=== PATIENT | male | born 1940 | race Caucasian/White ===

== ENCOUNTER 2016-10-10 01:56 | Inpatient (IN) | payer OTHER, MEDICARE ==
[~2016-10-10] VITALS: Ht 182.9 cm; Wt 95.3 kg
[~2016-10-10 01:56] MED LIST: ALEVE PM CAPLE1 EACH PO; ASPIRIN81 M4 PO; ATORVASTATIN CA40 M1 PO; DAILY MULTIPLE1 EACH PO; METFORMIN HCL1000 M1 PO
--- NOTE | 2016-10-10 09:55 | Operative Report ---
Operative/Inv Procedure Report Surgery Date: 10/10/16 Name of Procedure: Right total knee arthroplasty Pre-Operative Diagnosis: Primary arthritis right knee Post-Operative Diagnosis: Same Estimated Blood Loss: less than 50ml Surgeon/Excellence Specialist: SVEN LINCOLN,MERLYN Ortiz Anesthesia: moderate sedation, block (SPINAL) IV Fluids: See anesthesia record Implants: Andrea posterior stabilized triathlon knee. Size 6 femoral component, size 7 tibial tray component component, 36 Kaylene patella button, 13 mm polyethylene insert Specimens: Bone to pathology Tourniquet: 57 minutes Complications: None Condition: Stable Operative Indication: Patient 75 show male who failed conservative treatment including cortisone injections versus severe arthritis of the right knee. He was indicated for right total knee arthroplasty. Risks and benefits the procedure were discussed with the patient detail in the office and he wished to proceed. A skilled set of hands was necessary provided by physician pediatric dental assistant Braulio Ortiz weighted with retraction component assembly and manipulation throughout the case. Operative/Procedure Note Note: Once informed consent was obtained and the correct limb was identified patient brought to operative room placed on table. Spinal anesthesia was induced and the patient was placed supine. A Lopez catheter was placed in the right lower 70 is prepped and draped in usual sterile fashion. To begin the procedure midline incision was made for total knee arthroplasty. Sharp dissection was carried down through the skin and subcutaneous tissue. A medial parapatellar arthrotomy was performed. Patella was everted and the fat pad is removed from the patellar tendon. Patella thickness was measured to be 26 mm and a plan resection of 10 mm was performed on the patella using the patellar jig. The lug nuts were then drilled for the patellar button which side sized out to be a 36 symmetric patella. Patella was then retracted laterally and the knee was placed in flexion. The lateral medial menisci were removed sharply with a #10 blade. The cruciate Likins removed sharply with #10 blade. Using a step drill the intramedullary canal of the femur was entered and the distal femoral cutting guide was set to a 6 valgus cut with 10 mm resection. This was placed down each medullary canal and a distal femoral cut was made without complication. The femur was then sized using the sizing block. We sized the sciatic femur to be a size 6 femur. A 4-in-1 size 6 cutting block was placed in the distal femur and anterior, posterior, chamfer cuts were made without complication. Excess bone was sent as pathology. Next the box cut guide was placed on the distal femur for the posterior stabilized knee box cut. This was done without complication. Once we're finish the femoral cuts we proceeded to the tibia. A pickle fork retractor was placed posterior to the tibia and the tibia was translated anteriorly CV retractors were in place as well. Using a step drill again each medullary canal the tibia was entered and the intramedullary cutting guide the tibia was placed. A plan resection of 4 mm off the tibia was performed and bone was sent as specimen. The tibia was sized to be a size 7 tibial tray. At this point we used curved osteotomes and curved curettes to remove osteophytes from the posterior femur and condyles. Remaining meniscus was removed as well. A trial reduction was done with a size 7 tibia, size 6 femoral component and 11 mm polyethylene insert. Knee was taken through a range of motion. There was some slight laxity to medial or valgus directed stress and we ended up with a 13 mm insert. The knee had full extension and 120 of flexion. The patellar tracked nicely. The rotation of the tibial component was marked and all components removed. The knee was pulse lavaged and the cement was mixed on the back table. The components were then cemented in place with the tibial component cemented first followed by the femoral component and the patellar button. Excess cement was removed with curettes. A 13 mm polyethylene insert trial was placed onto the tibial tray and the knee was placed in full extension while cement hardened. Once the cement hardened the knee was taken through a full range of motion found be stable at 0 and 60 of varus and valgus stress. It had full extension and 120 of flexion. The patella tracked nicely. The trial insert was removed and an 13 mm polyethylene insert was opened and locked onto the tibial tray. The knee again was taken through range of motion. The knee was then pulse lavaged and the tourniquet was deflated. The arthrotomy is closed #1 Vicryl interrupted sutures. Subcutaneous tissues closed #1 Vicryl and 2-0 Vicryl interrupted sutures. This skin was closed with kimberly and a sterile dressing was applied.
--- NOTE | 2016-10-10 10:07 | Cons- Medical ---
GAGANDEEP BENOIT 10/10/16 1006: General Information and HPI Consulting Request Date of Consult: 10/10/16 Requested By: SVEN LINCOLN,MERLYN Maxwell Reason for Consult: Management of DM/HTN Source of Information: patient, old records Exam Limitations: no limitations History of Present Illness: This is a 75 years old gentleman with past medical history is significant for hyperlipidemia, spinal stenosis, osteoarthritis involving multiple joints, colon cancer status post resection chemotherapy and radiotherapy 2001 with complete remission who was admitted today for right total knee arthroplasty and we are providing consultation to provide management of his medical conditions. This patient denies any history of hypertension and is not on antihypertensive medications. He is taking metformin but reports that he was found to have borderline diabetes mellitus and because of that started on metformin. She does not check his sugars regularly and reports that the once a year checkup he does with his primary care has shown almost complete resolution of the diabetes mellitus but nevertheless continues to take metformin. He denies any excessive past, polyuria or polyphagia. Patient reports that he follows up only with his primary care physician know any other specialist. His main concern is pain from multiple joint arthritis he has and from his spinal stenosis which worsened after radiotherapy for his colon cancer. Allergies/Medications Allergies: Coded Allergies: acetaminophen (From Percocet) (Intermediate, NAUSEA 10/10/16) oxycodone (From Percocet) (Intermediate, NAUSEA 10/10/16) Home Med List: Aspirin (Aspirin*) 81 MG TAB.CHEW 1 TAB PO DAILY PROPHO (Reported) Atorvastatin Calcium 40 MG TABLET 1 TAB PO DAILY CHOLESTEROL (Reported) Metformin HCl 1,000 MG TABLET 1 TAB PO NIGHTLY DM11 (Reported) Multivitamin (Daily Multiple Vitamin) 1 EACH TABLET 1 TAB PO DAILY HEALTH ( Reported) Naproxen Na-Diphenhydramin HCl (Aleve Pm Caplet) 220 MG-25 MG TABLET 1 TAB PO NIGHTLY SLEEP (Reported) Current Medications: Current Medications Sig/Mayra Start time Last Medication Dose Route Stop Time Status Admin Al Hydroxide/Mg 30 ML Q6P PRN 10/10 1300 AC Hydroxide PO Atorvastatin Calcium 40 MG 1700 10/10 1700 AC PO Docusate Sodium 100 MG DAILY NEEDED PRN 10/10 1300 AC PO Metformin HCl 1,000 MG 19010/10 1900 AC PO Morphine Sulfate 2 MG Q3P PRN 10/10 1300 AC IV Morphine Sulfate 4 MG Q3P PRN 10/10 1300 AC IV Ondansetron HCl 4 MG Q6P PRN 10/10 1300 AC IV Oxycodone/ 1 TAB Q4P PRN 10/10 1300 AC Acetaminophen PO Oxycodone/ 2 TAB Q4P PRN 10/10 1300 AC Acetaminophen PO Polyethylene Glycol 17 GM DAILY NEEDED PRN 10/10 1300 AC PO Ropivacaine 500 ML ONCE ONE 10/10 0900 DC ON-Q Ball 1 BAG INJ 10/12 0239 Senna/Docusate Sodium 2 TAB AT BEDTIME NEED.. 10/10 1300 AC PO Sodium Chloride 1,000 ML .[id number] 10/10 1300 AC IV Vancomycin HCl 1,000 MG ONCE ONE 10/10 1900 AC Dextrose/Water 250 ML IV 10/10 1959 Vancomycin HCl 1,000 MG ONCE 10/10 0000 DC Dextrose/Water 250 ML IV 10/10 2359 Warfarin Sodium 5 MG COUMADIN 1700 ONE 10/10 1700 AC PO 10/10 1701 Review of Systems Review of Systems Constitutional: Denies: chills, fever. EENTM: Denies: blurred vision, double vision, visual changes. Cardiovascular: Denies: chest pain, palpitations. Respiratory: Denies: cough, short of breath. GI: Denies: abdominal pain, nausea, vomiting. Genitourinary: Denies: dysuria, frequency, urgency. Musculoskeletal: Denies: no symptoms. Skin: Denies: no symptoms. All Other Systems: Reviewed and Negative Past History Travel History Traveled to [place] past 21 day No Medical History Endocrine: diabetes Other Medical Hx: Hyperlipidemia Surgical History Surgical History: colon resection Family History Relations & Conditions If Any: SISTER (Colon Cancer). FATHER (CAD). Psychosocial History Services at Home: None Smoking Status: Never Smoked ETOH Use: denies use Illicit Drug Use: denies illicit drug use Functional Ability ADLs Independent: dressing, eating, toileting, bathing. Ambulation: independent Exam & Diagnostic Data Last 24 Hrs of Vital Signs/I&O Vital Signs Date Time Temp Pulse Resp B/P Pulse O2 O2 Flow FiO2 Ox Delivery Rate 10/10 1322 99 Nasal 2.0L Cannula 10/10 1300 97.0 58 18 140/80 99 Nasal 2.0L Cannula Intake & Output 10/10 1600 10/10 0800 10/10 0000 Intake Total 500 Output Total 700 Balance -200 Intake, IV 150 Intake, Oral 350 Output, Urine 700 Patient 210 lb Weight Physical Exam General Appearance: well developed/nourished, no apparent distress, alert, awake Head: atraumatic, normal appearance Eyes: Bilateral: normal appearance. Ears, Nose, Throat: normal pharynx Neck: normal inspection, supple Respiratory: normal breath sounds, chest non-tender, no respiratory distress Cardiovascular: regular rate/rhythm Peripheral Pulses: 2+ radial (R), 2+ radial (L), 2+ dorsalis pedis (R), 2+ dorsalis pedis (L) Gastrointestinal: normal bowel sounds, soft, non-tender Back: normal inspection Extremities: normal inspection, normal capillary refill, no edema, RIGHT KNEE BANDAGED UP WITH A PAIN PUMP Last 24 Hrs of Labs/Sunny: None Assessment/Plan Assessment/Plan This is a 75 years old gentleman with history of hyperlipidemia, borderline diabetes mellitus on metformin, colon cancer status post surgery chemotherapy and radiotherapy in 2001 with complete remission who was admitted for right total knee arthroplasty. Diabetes mellitus Patient reports the diabetes to be borderline without any need of frequent sugar checks and has been taking metformin 1000 mg with very good response. This patient has little likelihood of requiring investigation that will use contrast. I will continue him on the metformin but at adjust his diet to be consistent carbohydrate diet. Hyperlipidemia Patient reports stable hyperlipidemia for which she take atorvastatin 40 mg daily. We'll continue the patient anticholesterol medications. Home medications: Patient has been taking aspirin 81 mg daily for heart health and multiple vitamin tablet every day for supplement. She relieves his pain with naproxen and Aleve p.m. but currently is on a pain regimen as a result of post operative management. Would continue his home dose of aspirin and multivitamin. DVT prophylaxis at all times Problem List: 1. Diabetes 2. Hyperlipidemia 3. Spinal stenosis Copies To: TATIANA LINCOLN,AREN Cruz; JJ LINCOLN,GENEVA Yepez. Consult Acknowledgment - Thank you for your consult request. DAVIDE RICO MD 10/10/162115: Assessment/Plan Consult Acknowledgment - Thank you for your consult request. Attending MD Review Statement Attending Statement Attending MD Statement: examined this patient, discuss w/resident/PA/ELIGIBILITY CLERK, agreed w/resident/PA/ELIGIBILITY CLERK, reviewed EMR data (avail), amended to note Attending Assessment/Plan: The patient is a 75 yo male with h/o HL, spinal stenosis, OA, DM2 (on Metformin) , h/o colon ca (s/p chemo/radiation/surgery) who presented for elective right knee replacement with Dr. Kapadia today. We are requested to evaluate and follow any medical issues post operatively. Surgery went well with no significant issues. The patient denies any dyspnea, chest pain, abdominal pain. Only has usual post operative knee pain. Physical Exam: VS: T 97.0, P 58, R 18, BP 140/80, PO 99% 2L (not needed) HEENT: jason- moist mucosa Neck: no bruits/JVD Chest: clear Cor: RRR, nl S1, S2 w/o murm Abd: BS+, soft, NT, - HSM Ext: post op right knee, no edema, pulses 2+ Neuro: alert & oriented, non-focal exam Labs/Tests- as above Impression/Plan: #S/P Right Knee Arthroplasty- immediately post op. Plan: As per orthopedics. Vanco given pre-op. Coumadin post op. #Hyperlipidemia- has been followed by Dr. Spangler Plan: Continue Atorvastatin. #DM2- patient on Metformin and does not wish to take insulin. As is stable post op should be able to give Metformin. Plan: Continue Metformin and follow sugars. Consistent carb 3 diet. #H/O Colon Cancer- in remission. Plan: OP follow-up as planned.
[2016-10-10 13:00] VITALS: BP 140/80
--- NOTE | 2016-10-10 13:00 | NUR ---
PT ADMITTED FROM PACU S/P RT TKR, PT AXO, DENIES PAIN, RT KNEE DSG CDI, + CMS DURAKOLD IN PLACE, SHAFFER CATH PATENT DRAINING CLEAR YELLOW URINE, FAMILY AT BEDSIDE, SKIN INTACT
--- NOTE | 2016-10-10 14:44 | PN- Orthopedic ---
Subjective Subjective: Reports some knee discomfort "aching". Already up walking with PT. No dizziness. No shortness of breath. No chest pains. He reports the aj is causing him to have an uncomfortable sensation, "i feel like i have to go all the time". Tolerating diet. No nausea. Objective Vital Signs and I&Os Vital Signs Date Time Temp Pulse Resp B/P Pulse O2 O2 Flow FiO2 Ox Delivery Rate 10/10 1322 99 Nasal 2.0L Cannula 10/10 1300 97.0 58 18 140/80 99 Nasal 2.0L Cannula Intake & Output 10/10 1600 10/10 0800 10/10 0000 10/09 1600 10/09 0800 10/09 0000 Intake Total 500 Output Total 700 Balance -200 Intake, IV 150 Intake, Oral 350 Output, Urine 700 Patient 210 lb Weight Physical Exam: General - alert & oriented x 3. comfortable. out of bed to chair. no acute distress. Lungs - clear bilaterally. no w/r/r. Cardiac - s1s2. reg. Abdomen - soft. nontender. - aj draining clear, yellow urine. Extremities - warm bilaterally. no c/c/e. calves soft and nontender b/l. dressing c/d/i. nvi. on q in place. Assessment/Plan Assessment/Plan This 75 year old white male with hx dm and htn is POD#0 s/p right total knee arthroplasty for primary osteoarthritis tolerating diet. d/c iv fluids in the morning pain control as ordered f/u am labs coumadin accordingly - dvt ppx d/c aj in am PT eval, wbat [place]-operative vancomycin x 1 dose bowel regime dressing change POD#2 d/c planning f/u medical consult will d/w Core Measures/Miscellaneous Venous Thromboembolism VTE Risk Factors: Age > 40, Surgery VTE Contraindications: No Contraindications VTE Prophylaxis Ordered Inpt: Mech & Pharm VTE Diagnosis: No Beta Alex Is Beta Alex a Home Med? No Antibiotics Is Patient on Antibiotics? Yes If Yes: prophylaxis
[2016-10-10 15:20] VITALS: BP 130/70
[2016-10-10 16:58] VITALS: BP 130/68
[2016-10-10 19:02] VITALS: BP 132/70
[2016-10-10 22:58] VITALS: BP 120/60
[2016-10-11 03:23] VITALS: BP 160/80
[2016-10-11 06:51] VITALS: BP 150/80
--- NOTE | 2016-10-11 07:33 | PN- Medicine Consult ---
GAGANDEEP BENOIT 10/11/16 0733: Assessment/Plan Assessment/Plan Assessment: This is a 75 years old male with past medical history of type 2 diabetes mellitus, hyperlipidemia, colon cancer status post colon resection chemotherapy and radiotherapy 15 years ago for today is day 1 post right total knee arthroplasty. Patient reports to continue to experience right knee soreness with minimal relief from most of the medication with the exception of morphine. The patient is a left oriented to time place and person very plesant and has been eating and finishing his meals without any problems. Plan: Right knee total arthroplasty Today is day 1 post procedure. Patient reports to continue to have pain. Received only 2 doses of IV morphine Please continue to assess pain and address accordingly. She has pain regimen per orthopedic team Diabetes mellitus Patient is on consistent carbohydrate diet Continue with metformin Accu-Cheks before meals to assess sugar control. Hyperlipidemia Patient is on atorvastatin per primary care physician Continue with current cholesterol medications Problem List: 1. Diabetes 2. Hyperlipidemia 3. Spinal stenosis 4. S/P total knee arthroplasty Subjective Subjective: Patient is post right TKA day 1. Patient reports not to have slept well because of the right knee pain he received multiple doses of pain medication. All the pain medication he reports that morphine is the one which is waking the best. Since admission has just received 2 doses of morphine of which he can get up to every 3 hours. Through the special panel pain scale has been between 5 and 7. Patient has been eating and finishing his meals well completing 75-100% of his portions. Review of Systems Constitutional: Denies: chills, fever. Cardiovascular: Denies: chest pain, palpitations. Respiratory: Denies: cough, short of breath, wheezing. Gastrointestinal: Denies: abdominal pain, nausea, vomiting (no bowel movement). Genitourinary: Denies: no symptoms. Musculoskeletal: Reports: see HPI, joint pain. Skin: Denies: no symptoms. Comments: All other systems reviewed and are negative Objective Last 24 Hrs of Vital Signs/I&O Vital Signs Date Time Temp Pulse Resp B/P Pulse O2 O2 Flow FiO2 Ox Delivery Rate 10/11 0651 98.3 91 20 150/80 92 Nasal 2.0L Cannula 10/11 0323 90 160/80 02 0000 Nasal 2.0L Cannula 10/108 98.4 68 20 120/60 93 Nasal Cannula 10/10 1902 98.7 84 20 132/70 92 Room Air 10/10 1658 97.7 67 20 130/68 94 Room Air 10/10 1520 97.6 69 20 130/70 91 Room Air 10/10 1322 99 Nasal 2.0L Cannula 10/10 1300 97.0 58 18 140/80 99 Nasal 2.0L Cannula Intake & Output 10/11 1600 10/11 0800 10/11 0000 Intake Total 1005 Output Total 550 1050 Balance -550 -45 Intake, IV 525 Intake, Oral 480 Output, Urine 550 1050 Physical Exam General Appearance: no apparent distress, alert, awake Head: atraumatic, normal appearance Ears, Nose, Throat: normal pharynx, wet mucous membranes Neck: normal inspection, supple Cardiovascular: regular rate/rhythm Respiratory: normal breath sounds, chest non-tender, no respiratory distress, lungs clear Peripheral Pulses: 2+ tibialis posterior (R), 2+ tibialis posterior (L), 2+ dorsalis pedis (R), 2+ dorsalis pedis (L) Abdomen: normal bowel sounds, soft, non-tender Extremities: normal capillary refill, no edema, right knee bandaged no bleeding on the dressing Current Medications: Current Medications Sig/Mayra Start time Last Medication Dose Route Stop Time Status Admin Acetaminophen 1,000 MG Q6P PRN 10/10 1530 AC 10/10 N/A 1 UNIT IV 1600 Al Hydroxide/Mg 30 ML Q6P PRN 10/10 1300 AC Hydroxide PO Atorvastatin Calcium 40 MG 1700 10/10 1700 AC 10/10 PO 1735 Docusate Sodium 100 MG BID 10/10 2200 AC 10/10 PO 2144 Docusate Sodium 100 MG DAILY NEEDED PRN 10/10 1300 DC PO Ketorolac 15 MG Q6-PRN PRN 10/10 1530 AC 10/10 Tromethamine IV 1937 Metformin HCl 1,000 MG 1900 10/10 1900 AC 10/10 PO 1930 Morphine Sulfate 2 MG Q3P PRN 10/10 1300 AC IV Morphine Sulfate 4 MG Q3P PRN 15 1300 AC 10/11 IV 0744 Ondansetron HCl 4 MG Q6P PRN 10/10 1300 AC IV Oxycodone/ 1 TAB Q4P PRN 10/10 1300 DC Acetaminophen PO Oxycodone/ 2 TAB Q4P PRN 10/10 1300 DC Acetaminophen PO Polyethylene Glycol 17 GM DAILY NEEDED PRN 10/10 1300 AC PO Ropivacaine 500 ML ONCE ONE 10/10 0900 DC ON-Q Ball 1 BAG INJ 10/12 0239 Senna/Docusate Sodium 2 TAB AT BEDTIME NEED.. 10/10 1300 AC PO Sodium Chloride 1,000 ML .[id number] 10/10 1300 AC 10/10 IV 2316 Tramadol HCl 100 MG Q6-PRN PRN 10/10 1545 AC PO Tramadol HCl 50 MG Q4 PRN 10/10 1530 AC 10/10 PO 2144 Vancomycin HCl 1,000 MG ONCE ONE 10/10 1900 DC 10/10 Dextrose/Water 250 ML IV 10/10 1959 1931 Vancomycin HCl 1,000 MG ONCE 10/10 0000 DC Dextrose/Water 250 ML IV 10/10 2359 Warfarin Sodium 5 MG COUMADIN 1700 ONE 10/10 1700 DC 10/10 PO 10/10 1701 1735 Results Last 24 Hrs Lab/Sunny Results: Laboratory Tests 10/11/16 0700: Anion Gap 10, Estimated GFR > 60, BUN/Creatinine Ratio 16.3, PT 12.4, INR 1.18 H, CBC w Diff NO MAN DIFF REQ, RBC 3.87 L, MCV 93.0, MCH 31.2 H, RDW 13.1, MPV 7.1 L, Gran % 82.5 H, Lymphocytes % 8.5 L, Monocytes % 8.2, Eosinophils % 0.5 , Basophils % 0.3, Absolute Granulocytes 6.3, Absolute Lymphocytes 0.7 L, Absolute Monocytes 0.6, Absolute Eosinophils 0, Absolute Basophils 0, PUBS MCHC 33.5 DAVIDE RICO MD 10/11/16 1623: Attending MD Review Statement Attending Sign Off Attending Cosign Statement: I have: examined this patient, reviewed [facility] EMR data, agreed w/resident/PA/PODIATRY ASSISTANT , amended to note. Other Findings: The patient was seen and agree with the plan of care as outlined.
[2016-10-11 08:00] LABS: ABSOLUTE BASOPHIL COUNT 0 /CUMM (0.0-0.2); ABSOLUTE EOSINOPHIL COUNT 0 /CUMM (0.0-0.7); ABSOLUTE GRANULOCYTE CT 6.3 /CUMM (1.4-6.5); ABSOLUTE LYMPH COUNT 0.7 /CUMM (1.2-3.4); ABSOLUTE MONOCYTE COUNT 0.6 /CUMM (0.10-0.60); BASOPHIL % 0.3 % (0.0-2.0); EOSINOPHIL % 0.5 % (0-5); GRANULOCYTE % 82.5 % (42.2-75.2); HEMATOCRIT 35.9 % (42-52); MEAN CORPUSCULAR HGB 31.2 PG (27.0-31.0); MEAN CORPUSCULAR HGB CONC 33.5 G/DL (33.0-37.0); MEAN PLATELET VOLUME 7.1 FL (7.4-10.4); PLATELET COUNT 173 /CUMM (130-400); RBC DISTRIBUTION WIDTH 13.1 % (11.5-14.5); RED BLOOD CELL CT 3.87 /CUMM (4.70-6.10); WHITE BLOOD CELL COUNT 7.6 /CUMM (4.8-10.8)
[2016-10-11 08:14] LABS: PT 12.4 SEC (9.4-12.5)
--- NOTE | 2016-10-11 09:20 | PN- Orthopedic ---
Subjective Subjective: Post op day 1, patient c/o uncontrolled pain overnight. Was not able to sleep as a result. Denies chest pain, shortness of breath and difficulty breathing. Has poor appetite but denies nausea and vomitting. Has aj catheter in place. Objective Vital Signs and I&Os Vital Signs Date Time Temp Pulse Resp B/P Pulse O2 O2 Flow FiO2 Ox Delivery Rate 10/11 0651 98.3 91 20 150/80 92 Nasal 2.0L Cannula 10/11 0323 90 160/80 10/11 0000 Nasal 2.0L Cannula 10/10 2258 98.4 68 20 120/60 93 Nasal Cannula 10/10 1902 98.7 84 20 132/70 92 Room Air 10/10 1658 97.7 67 20 130/68 94 Room Air 10/10 1520 97.6 69 20 130/70 91 Room Air 10/10 1322 99 Nasal 2.0L Cannula 10/10 1300 97.0 58 18 140/80 99 Nasal 2.0L Cannula Intake & Output 10/11 1600 10/11 0800 10/11 0000 10/10 1600 10/10 0800 10/10 0000 Intake Total 720 1005 500 Output Total 550 1050 700 Balance 170 -45 -200 Intake, IV 600 525 150 Intake, Oral 120 480 350 Number 0 Bowel Movements Output, Urine 550 1050 700 Patient 210 lb Weight Physical Exam: General: alert and oriented x3, no acute distress Cardiac: RRR, s1s2 Pulmonary: Bilateral lung sounds cta Abdomen: Non-tender Extremities: Moves all extremities, distal sensations intact. Motor 5/5 in plantar and dorsi flexion bilaterally. Skin warm and well perfused. DP pulses palpable bilaterally. Bilateral calves soft and non-tender. Surgical site: Right knee. OnQ site tender, mild bruising noted around insertion site. Knee dressing clean dry and intact. Assessment/Plan Assessment/Plan This is a 75 year male, POD 1, s/p Right TKR -Add: MS contin 15 bid -Change: Toradol from prn to scheduled for today, d/c 4mg iv morphine, d/c tramadol, add dilaudid po for pain management -Diet: Advance as tolerated -D/C iv fluids -D/C aj catheter -D/C on Q -OOB with pt today, wbat -F/U am labs -DVT ppx: Coumadin, dose per INR, target INR 2-3 -Will d/w Dr. Kapadia Core Measures/Miscellaneous Venous Thromboembolism VTE Risk Factors: Age > 40, Surgery VTE Contraindications: No Contraindications VTE Prophylaxis Ordered Inpt: Mech & Pharm VTE Diagnosis: No Beta Alex Is Beta Alex a Home Med? No Antibiotics Is Patient on Antibiotics? Yes If Yes: prophylaxis
[2016-10-11 13:51] VITALS: BP 130/80
--- NOTE | 2016-10-11 16:09 | NUR ---
SPOKE WITH LAZARUS MOODY REGARDING PT'S LACK OF CONTROLLED. SRIKANTH WILL CHANGE IV MORPHINE TO IV DILAUDID. ALLAN BOOKER AWARE.
--- NOTE | 2016-10-11 20:53 | NUR ---
SHAFFER REMOVED 0955, PT DTV BY 1355. AT 1600 PT STILL HAD NOT VOIDED, PT SAID HE WOULD DRINK ALOT OF WATER AND MOVE AROUND TO SEE IF THAT WOULD HELP HIM VOID. AT 1700 PT STILL HAD NOT VOIDED, BLADDER SCAN SHOWED 324, 350, AND 370 ML. PT WISHED TO EAT DINNER. STRAIGHT CATHED PT AT 1750 AND GOT OUT 375 ML. TOLD SURGICAL PA ELIAS ABOUT SITUATION AND DID NOT WISH TO PLACE PATIENT ON STRAIGHT CATH PROTOCOL. ALSO NOTIFIED ELIAS THAT FAMILY REQUESTED TO HAVE LFT'S DRAWN ON PATIENT WITH MORNING LABS, ELIAS DECLINED TO ORDER.
--- NOTE | 2016-10-11 22:42 | NUR ---
PT BLADDER SCANNED AT THIS TIME FOR 150 ML. PT DENIES PAIN OR DISCOMFORT, NO DISTENTION PRESENT. PO FLUIDS ENCOURAGED. SURGICAL PA ELIAS AWARE, NOT TO STRAIGHT CATH AT THIS TIME, WILL CONTINUE TO ENCOURAGE PO FLUIDS AND RECHECK WITH SCAN IN 2 HOURS OR IF PT STARTS TO EXPERIENCE DISCOMFORT.
[2016-10-11 22:57] VITALS: BP 140/72
--- NOTE | 2016-10-12 04:30 | NUR ---
PT UNABLE TO VOID SO FAR. BLADDER SCANNED SHOWED 375ML URINE RETENTION. ST CATHETERIZED FOR 400ML LIGHT EMMA URINE. SURGICAL PA ELIAS MADE AWARE WHO SAID IF THE PT NOT ABLE TO VOID BY NEXT DUE TIME, PLACE A SHAFFER. SURGICAL PA LAZARUS REMINDED THIS AM WHO PROMISED TO PUT AN ORDER IN FOR A SHAFFER PRN. DAY ADE SALGADO AWARE.
[2016-10-12 06:30] VITALS: BP 140/80
--- NOTE | 2016-10-12 07:45 | PN- Orthopedic ---
See Addendum Subjective Subjective: Patient complaining of discomfort around proximal portion of tomer bandage. He is also complaining of difficulty urinating today. He was straight cath'd overnight for retention. He continues to have pain in his operative knee. He feels overall that his pain is improved from one day ago. He denies chest pain, shortness of breath and difficulty breathing. He denies nausea and vomitting. He has been having difficulty ambulating. Objective Vital Signs and I&Os Vital Signs Date Time Temp Pulse Resp B/P Pulse O2 O2 Flow FiO2 Ox Delivery Rate 10/12 0630 99.7 86 20 140/80 93 Nasal 1.5L Cannula 10/11 2257 98.6 83 20 140/72 93 Nasal 1.0L Cannula 10/11 1351 99.5 90 20 130/80 91 Intake & Output 10/12 0800 10/12 0000 10/11 1600 10/11 0800 10/11 0000 10/10 1600 Intake Total 500 0027 957 5221 500 Output Total 375 069 140 5178 700 Balance 125 925 170 -45 -200 Intake, IV 300 75 600 525 150 Intake, Oral 200 1150 120 480 350 Number 0 Bowel Movements Output, Urine 375 814 384 8777 700 Patient 210 lb Weight Physical Exam: General: ALert and oriented x3, no acute distress Cardiac: RRR, s1s2 Pulm: C T A bilaterally Abdomen: Non=tender, non-distended Extremities: Moves all extremities, distal sensations intact. Motor 5/5 in plantar and dorsi flexion. Skin warm and well perfused. DP pulses palpable bilaterally. Bilateral calves soft and non-tender Surgical site: Right knee. Dressing dry and intact, changed at bedside, skin edges well approximated, kimberly intact, no excessive redness, warmth or swelling, no drainage. Clean dry dressing reapplied. Assessment/Plan Assessment/Plan This is a 75 year old male, POD 2, s/p Right TKR -Dressing change today -Wean off of IV narcotic as tolerated -hold toradol due to urinary issues -F/U bun-Creatinine -Lopez catheter if unable to void by 930 am -Start flomax, discussed case with Dr. Garcia, he will see patient -DVT ppx coumadin, dose per INR -Continue diet as tolerated -Saline Nasal spray for congestion -Will d/w dr. Kapadia Core Measures/Miscellaneous Venous Thromboembolism VTE Risk Factors: Age > 40, Surgery VTE Contraindications: No Contraindications VTE Prophylaxis Ordered Inpt: Mech & Pharm VTE Diagnosis: No Beta Alex Is Beta Alex a Home Med? No Antibiotics Is Patient on Antibiotics? Yes If Yes: prophylaxis
[2016-10-12 09:02] LABS: ABSOLUTE BASOPHIL COUNT 0 /CUMM (0.0-0.2); ABSOLUTE EOSINOPHIL COUNT 0.2 /CUMM (0.0-0.7); ABSOLUTE GRANULOCYTE CT 6.9 /CUMM (1.4-6.5); ABSOLUTE LYMPH COUNT 0.9 /CUMM (1.2-3.4); ABSOLUTE MONOCYTE COUNT 0.9 /CUMM (0.10-0.60); BASOPHIL % 0.3 % (0.0-2.0); EOSINOPHIL % 1.8 % (0-5); GRANULOCYTE % 77.6 % (42.2-75.2); HEMATOCRIT 33.7 % (42-52); MEAN CORPUSCULAR HGB 31.5 PG (27.0-31.0); MEAN CORPUSCULAR VOLUME 92.7 FL (80.0-94.0); MEAN PLATELET VOLUME 7.2 FL (7.4-10.4); PLATELET COUNT 195 /CUMM (130-400); RED BLOOD CELL CT 3.64 /CUMM (4.70-6.10); WHITE BLOOD CELL COUNT 8.9 /CUMM (4.8-10.8)
--- NOTE | 2016-10-12 09:24 | PN- Medicine Consult ---
GAGANDEEP BENOIT 10/12/16 0923: Assessment/Plan Assessment/Plan Assessment: This is a 75 years old male with past medical history of type 2 diabetes mellitus, hyperlipidemia, colon cancer status post colon resection chemotherapy and radiotherapy 15 years ago for today is day 2 post right total knee arthroplasty. Plan: Right knee total arthroplasty Today is day 2 post procedure. Patient reports pain is more controlled. Please continue to assess pain and address accordingly. He has pain regimen per orthopedic team Urine retention Patient reports that has not been able to void. He denies feeling any bladder fullness or urge to urinate. Subsequent bladder scans showed a rate urine around 300 mL for which the patient was straight cathed. He has never experienced urine retention in the past. Patient should be encouraged to continue to drink the if is not having urine have his bladder scanned every shift and only consider straight cath if urine more than 450 mL. patient started on Flomax 0.4 mg daily, continue to monitor for urine output. Diabetes mellitus Patient is on consistent carbohydrate diet Continue with metformin Accu-Cheks before meals to assess sugar control. Hyperlipidemia Patient is on atorvastatin per primary care physician Continue with current cholesterol medications Problem List: 1. Diabetes 2. Hyperlipidemia 3. Spinal stenosis 4. S/P total knee arthroplasty 5. Urine retention Subjective Subjective: Patient reports to continue to experience right knee soreness with minimal relief from most of the medication with the exception of morphine. The patient is a left oriented to time place and person very plesant and has been eating and finishing his meals without any problems. Patient reports that pain is more controlled maximum pain in 03/04. Review of Systems Constitutional: Denies: chills, fever. Cardiovascular: Denies: chest pain, palpitations. Respiratory: Denies: cough, short of breath. Gastrointestinal: Denies: abdominal pain, nausea, vomiting. Genitourinary: Denies: dysuria, frequency (urine retention). Musculoskeletal: Reports: see HPI, joint pain. Skin: Denies: no symptoms. Comments: All other systems reviewed and are negative Objective Last 24 Hrs of Vital Signs/I&O Vital Signs Date Time Temp Pulse Resp B/P Pulse O2 O2 Flow FiO2 Ox Delivery Rate 10/12 0630 99.7 86 20 140/80 93 Nasal 1.5L Cannula 10/11 2257 98.6 83 20 140/72 93 Nasal 1.0L Cannula 02/16 1351 99.5 90 20 130/80 91 Intake & Output 10/12 1600 10/12 0800 10/12 0000 Intake Total 120 500 Output Total 400 375 Balance -280 125 Intake, IV 20 300 Intake, Oral 100 200 Output, Urine 400 375 Physical Exam General Appearance: no apparent distress, alert, awake Head: atraumatic, normal appearance Neck: normal inspection, supple Cardiovascular: regular rate/rhythm Respiratory: normal breath sounds, chest non-tender, no respiratory distress Peripheral Pulses: 2+ dorsalis pedis (R), 2+ dorsalis pedis (L) Abdomen: normal bowel sounds, soft, non-tender Extremities: normal inspection, normal capillary refill, no edema Current Medications: Current Medications Sig/Mayra Start time Last Medication Dose Route Stop Time Status Admin Acetaminophen 1,000 MG Q6P PRN 10/10 1530 DC 10/10 N/A 1 UNIT IV 1600 Al Hydroxide/Mg 30 ML Q6P PRN 10/10 1300 AC Hydroxide PO Atorvastatin Calcium 40 MG 1700 10/10 1700 AC 10/11 PO 1636 Docusate Sodium 100 MG BID 10/10 2200 AC 10/11 PO 2110 Hydromorphone HCl 1 MG Q2-3 HRS NEEDED.. 10/11 1615 AC 10/11 IV 1827 Hydromorphone HCl 2 MG Q4P PRN 10/11 0845 AC PO Hydromorphone HCl 4 MG Q4-PRN PRN 10/11 0845 AC 10/11 PO 1514 Ketorolac 15 MG Q8 10/11 1400 AC 10/12 Tromethamine IV 10/15 1359 0700 Metformin HCl 1,000 MG 1900 10/10 1900 AC 10/11 PO 1900 Morphine Sulfate 15 MG BID 10/11 1000 AC 10/11 PO 2111 Morphine Sulfate 2 MG Q3P PRN 10/10 1300 AC 10/11 IV 1220 Ondansetron HCl 4 MG Q6P PRN 10/10 1300 AC 10/12 IV 1025 Polyethylene Glycol 17 GM DAILY NEEDED PRN 10/10 1300 AC PO Senna/Docusate Sodium 2 TAB AT BEDTIME NEED.. 10/10 1300 AC PO Sodium Chloride 2 SPRAY Q 3-4 HRS PRN PRN 10/12 0745 AC BLANCA Tamsulosin HCl 0.4 MG DAILY 10/12 1000 AC PO Tramadol HCl 100 MG Q6-PRN PRN 10/10 1545 AC PO Tramadol HCl 50 MG Q4 PRN 10/10 1530 AC 10/10 PO 2144 Warfarin Sodium 5 MG COUMADIN 1700 ONE 10/11 1700 DC 10/11 PO 10/11 1701 1636 Results Last 24 Hrs Lab/Sunny Results: Laboratory Tests 10/12/16 0740: Anion Gap 9, Estimated GFR > 60, BUN/Creatinine Ratio 16.3, PT 18.0 H, INR 1.72 H, CBC w Diff NO MAN DIFF REQ, RBC 3.64 L, MCV 92.7, MCH 31.5 H, RDW 13.0, MPV 7.2 L, Gran % 77.6 H, Lymphocytes % 10.3 L, Monocytes % 10.0 H, Eosinophils % 1.8, Basophils % 0.3, Absolute Granulocytes 6.9 H, Absolute Lymphocytes 0.9 L, Absolute Monocytes 0.9 H, Absolute Eosinophils 0.2, Absolute Basophils 0, PUBS MCHC 34.0 DAVIDE RICO MD 10/12/16 1716: Attending MD Review Statement Attending Sign Off Attending Cosign Statement: I have: examined this patient, reviewed [facility] EMR data, agreed w/resident/PA/LEAD MOBILE DEVELOPER , amended to note. Other Findings: The patient was seen and discussed with resident. Agree with plan of care as outlined.
--- NOTE | 2016-10-12 13:24 | RADIOLOGY REPORT ---
EXAMINATION: XR KNEE, RIGHT CLINICAL INFORMATION: Status post right total knee arthroplasty. COMPARISON: None TECHNIQUE: AP and lateral views of the right knee. FINDINGS: The right total knee arthroplasty appears well seated in near-anatomic alignment. There is a small joint effusion. There is some air in the joint and soft tissues. There are anterior skin kimberly. IMPRESSION: Intact right total knee arthroplasty. Expected postoperative changes.
[2016-10-12 14:57] VITALS: BP 132/76
--- NOTE | 2016-10-12 15:01 | RADIOLOGY REPORT ---
EXAMINATION: XR ABDOMEN MULTIPLE VIEWS CLINICAL INDICATION: Nausea/vomiting. Evaluate for ileus versus SBO. COMPARISON: Lumbosacral spine 01/30/2013. TECHNIQUE: AP erect and supine views (3 images) of the abdomen are obtained. FINDINGS: There is moderate stool in the right colon. There is mild gaseous distention of the transverse and proximal descending colon but no abnormal dilatation. There is tapered narrowing of the mid descending colon with nondistention distal to this. The etiology of this is unclear but a focal descending colon mass lesion cannot be excluded. There is no small bowel dilatation or other evidence of obstruction. There is no free air. There is mild right base linear atelectasis or scarring. There is a moderate left convex lumbar scoliosis with mild degenerative changes. IMPRESSION: Tapered narrowing of the mid descending colon. The possibility of a mass lesion is raised and colonoscopy may be considered. There is gaseous distention of the colon proximal to this but no abnormal dilatation. There is no other evidence of obstruction.
[2016-10-12 22:46] VITALS: BP 142/72
[2016-10-13] MEDS ORDERED: COUMADIN2.5 M1 PO (06:44)
[2016-10-13] MEDS ORDERED: DILAUDID2 M1 PO (06:44)
--- NOTE | 2016-10-13 06:44 | Patient Discharge Instructions ---
Discharge Instructions General Discharge Information You were seen/treated for: Right knee pain due to osteoarthritis You had these procedures: Right total knee replacement Watch for these problems: Increasing pain, redness, warmth, swelling. Drainage of any type from incision. Inability to bear weight on right leg. Fever >101.5 Call Surgeon to remove: [place] Do not soak the wound: Yes Daily wet to dry dressings: No No bath, but you may shower: Yes Other wound care: Daily dry dressing changes Special Instructions: DO NOT GIVE COUMADIN TODAY, 10/14/2016 Repeat INR tomorrow, then coumadin daily, titrate dose to target inr 2-3 Lopez cather placed on Saturday10/12/16 due to urinary retention, anticipate voiding trial saturday10/15/16, follow up as outpatient with Dr. Kashmir Garcia Continue to monitor bowel function and follow up as an outpatient with your GI specialist. Diet Continue normal diet: Yes Recommended Diet: Heart Healthy Activity Full Activity/No Limits: No Activity Self Limited: Yes Pounds, do NOT lift more than: 10 Acute Coronary Syndrome Inclusion Criteria At DC or during hospital stay patient has or had the following: ACS DIAGNOSIS No Discharge Core Measures Meds if any: Prescribed or Continued at Discharge Meds if any: NOT Prescribed or Continued at Discharge Congestive Heart Failure Inclusion Criteria At DC or during hospital stay patient has or had the following: CHF DIAGNOSIS No Discharge Core Measures Meds if any: Prescribed or Continued at Discharge Meds if any: NOT Prescribed or Continued at Discharge Cerebrovascular accident Inclusion Criteria At DC or during hospital stay patient has or had the following: CVA/TIA Diagnosis No Discharge Core Measures Meds if any: Prescribed or Continued at Discharge Meds if any: NOT Prescribed or Continued at Discharge Venous thromboembolism Inclusion Criteria VTE Diagnosis No VTE Type NONE VTE Confirmed by (Test) NONE Discharge Core Measures - Per Current guidelines, there needs to be overlap - treatment for the first 5 days of Warfarin therapy. - If discharged on Warfarin prior to 5 days of - overlap therapy, the patient will need to be - assessed for post discharge needs including - *Post discharge parental anticoagulation - *Warfarin and/or parental anticoagulation education - *Follow up date to check INR post discharge At least 5 days overlap therapy as Inpatient No Meds if any: Prescribed or Continued at Discharge Note: Overlap Therapy is Warfarin and Anticoagulant Meds if any: NOT Prescribed or Continued at Discharge
[2016-10-13 06:45] VITALS: BP 148/77
[2016-10-13] MEDS ORDERED: FLOMAX0.4 M1 PO (06:45)
--- NOTE | 2016-10-13 06:55 | Surgical Discharge Summary ---
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 FATHER (CAD). Psychosocial History Where Do You Live? Home Who Do You Live With? Spouse Services at Home: None What is Your Primary Language? Northern Irish ETOH Use: denies use Review of Systems: see H&P Hospital Course Course Attending Physician: SVEN LINCOLN,MERLYN Maxwell Primary Care Physician: AREN SIMPSON MD Hospital Course: Patient was admitted to hospital on 10/10/2016 for and elective R total knee replacement. He tolerated the procedure well. He was transferred to a general surgical floor. His diet was advanced and tolearated. He was unable to void spontaneously following the removal of his aj catheter on POD 1, he was subsequently straight catherized and on POD 2, flomax was started and a aj catheter placed. He was evaluated by a urologist and it was recommended that a voiding trial take place three days after the aj catheter insertion. His pain was controlled, his vital signs were stable and within normal limits. He was evaluated and treated by physical therapy and he was deemed appropriate for discharge to short term rehab facility. Allergies: Coded Allergies: acetaminophen (From Percocet) (Intermediate, NAUSEA 10/10/16) oxycodone (From Percocet) (Intermediate, NAUSEA 10/10/16) Disposition Summary Disposition Principal Diagnosis: right knee unilateral primary osteoarthritis Additional Diagnosis: none Discharge Disposition: SNF Discharge Instructions General Discharge Information Code Status: Full Code Patient's Diet: Heart healthy, advance as tolerated Patient's Activity: WBAT Follow-Up Instructions/Appts: Please contact Dr. Kapadia and Dr. Garcia's office for follow up appointments. Please continue to be followed by your GI doctor upon discharge from hospital. Medications at Discharge Discharge Medications: Stop taking the following medications: Aspirin (Aspirin*) 81 MG TAB.CHEW ORAL DAILY Continue taking these medications: Metformin HCl (Metformin HCl) 1,000 MG TABLET 1 Tablet ORAL NIGHTLY Atorvastatin Calcium (Atorvastatin Calcium) 40 MG TABLET 1 Tablet ORAL DAILY Multivitamin (Daily Multiple Vitamin) 1 EACH TABLET 1 Tablet ORAL DAILY Naproxen Na-Diphenhydramin HCl (Aleve Pm Caplet) 220 MG-25 MG TABLET 1 Tablet ORAL NIGHTLY Start taking the following new medications: Warfarin Sodium (Coumadin) 2.5 MG TABLET 1 Tablet ORAL DAILY Qty = 30 No Refills Hydromorphone HCl (Dilaudid) 2 MG TABLET 1-2 Tablet ORAL EVERY 4-6 HOURS as needed for PAIN Qty = 36 No Refills Tamsulosin HCl (Flomax) 0.4 MG CAP.ER.24H 1 Capsule ORAL DAILY Qty = 30 No Refills
[2016-10-13 08:16] LABS: PT 19.1 SEC (9.4-12.5)
[2016-10-13 08:17] LABS: ABSOLUTE BASOPHIL COUNT 0 /CUMM (0.0-0.2); ABSOLUTE EOSINOPHIL COUNT 0.2 /CUMM (0.0-0.7); ABSOLUTE GRANULOCYTE CT 6.5 /CUMM (1.4-6.5); ABSOLUTE LYMPH COUNT 0.7 /CUMM (1.2-3.4); ABSOLUTE MONOCYTE COUNT 0.8 /CUMM (0.10-0.60); BASOPHIL % 0.3 % (0.0-2.0); EOSINOPHIL % 2.9 % (0-5); GRANULOCYTE % 78.4 % (42.2-75.2); HEMATOCRIT 32.2 % (42-52); MEAN CORPUSCULAR HGB 31.7 PG (27.0-31.0); MEAN CORPUSCULAR HGB CONC 34.1 G/DL (33.0-37.0); MEAN CORPUSCULAR VOLUME 92.9 FL (80.0-94.0); MEAN PLATELET VOLUME 7.1 FL (7.4-10.4); PLATELET COUNT 194 /CUMM (130-400); RBC DISTRIBUTION WIDTH 13.2 % (11.5-14.5); RED BLOOD CELL CT 3.47 /CUMM (4.70-6.10); WHITE BLOOD CELL COUNT 8.3 /CUMM (4.8-10.8)
--- NOTE | 2016-10-13 08:57 | PN- Orthopedic ---
See Addendum Subjective Subjective: POD #3 s/p right total knee replacement; AVSS. Post operative urinary retention requiring indwelling aj catheter. Objective Vital Signs and I&Os Vital Signs Date Time Temp Pulse Resp B/P Pulse O2 O2 Flow FiO2 Ox Delivery Rate 10/13 0700 94 Room Air 10/13 0645 98.6 84 20 148/77 93 Room Air 10/12 2246 98.1 88 20 142/72 92 Nasal Cannula 10/12 1457 99.1 80 20 132/76 93 Nasal 1.5L Cannula Intake & Output 10/13 1600 10/13 0800 10/13 0000 10/12 1600 10/12 0800 10/12 0000 Intake Total 50 760 480 120 500 Output Total 1400 650 700 400 375 Balance -1350 110 -220 -280 125 Intake, IV 0 10 20 300 Intake, Oral 50 750 480 100 200 Number 0 Bowel Movements Output, 200 Emesis Output, Urine 1400 650 500 400 375 Physical Exam: Gen: AAox3 in NAD Cor: S1+S2+ Lungs: CTA latasha Abd: soft, NT, ND, +BS x4 Ext: right knee dressing changed. Incision C/D/I with kimberly. No surrounding erythema or drainage noted. Palpable DP pulse. Foot warm. Sensation grossly intact. Thigh/calf compartments soft. Dorsi/plantar flexion intact. Current Medications: Current Medications Sig/Mayra Start time Last Medication Dose Route Stop Time Status Admin Al Hydroxide/Mg 30 ML Q6P PRN 10/10 1300 AC Hydroxide PO Atorvastatin Calcium 40 MG 1700 10/10 1700 AC 10/12 PO 1710 Bisacodyl 10 MG ONCE PRN 10/13 0800 AC 10/13 RI 0840 Docusate Sodium 100 MG .STK-MED ONE 10/12 2110 DC PO 10/12 2111 Docusate Sodium 100 MG BID 10/10 2200 AC 10/12 PO 211 Hydromorphone HCl 1 MG Q2-3 HRS NEEDED.. 10/11 1615 DC 10/11 IV 1827 Hydromorphone HCl 2 MG Q4P PRN 10/11 0845 AC 10/12 PO 1953 Hydromorphone HCl 4 MG Q4-PRN PRN 10/11 0845 AC 10/13 PO 0620 Ketorolac 15 MG Q8 10/11 1400 DC 10/12 Tromethamine IV 10/15 1359 1551 Metformin HCl 1,000 MG 1900 10/10 1900 AC 10/12 PO 1950 Morphine Sulfate 15 MG BID 10/11 1000 AC 10/12 PO 2116 Morphine Sulfate 2 MG Q3P PRN 10/10 1300 AC 10/11 IV 1220 Ondansetron HCl 4 MG .STK-MED ONE 10/12 1019 DC IM 10/12 1020 Ondansetron HCl 4 MG Q6P PRN 10/10 1300 AC 10/12 IV 1025 Polyethylene Glycol 17 GM DAILY NEEDED PRN 10/10 1300 AC 10/12 PO 1713 Senna/Docusate Sodium 2 TAB AT BEDTIME NEED.. 10/10 1300 AC 10/12 PO 2116 Sodium Chloride 2 SPRAY Q 3-4 HRS PRN PRN 10/12 0745 AC BLANCA Tamsulosin HCl 0.4 MG DAILY 10/12 1000 AC PO Tramadol HCl 100 MG Q6-PRN PRN 10/10 1545 DC PO Tramadol HCl 50 MG Q4 PRN 10/10 1530 DC 10/10 PO 2144 Warfarin Sodium 5 MG COUMADIN 1700 ONE 10/12 1700 DC 10/12 PO 10/12 1701 1710 Results Last 48 Hours of Labs: Laboratory Tests 10/13 10/12 0638 0740 Chemistry Sodium (137 - 145 mmol/L) 133 L 132 L Potassium (3.5 - 5.1 mmol/L) 4.3 4.0 Chloride (98 - 107 mmol/L) 96 L 97 L Carbon Dioxide (22 - 30 mmol/L) 28 25 Anion Gap (5 - 16) 9 9 BUN (9 - 20 mg/dL) 12 13 Creatinine (0.7 - 1.2 mg/dL) 0.8 0.8 Estimated GFR (>60 ml/min) > 60 > 60 BUN/Creatinine Ratio (7 - 25 %) 15.0 16.3 Coagulation PT (9.4 - 12.5 SEC) 19.1 H 18.0 H INR (0.90 - 1.17) 1.83 H 1.72 H Hematology CBC w Diff Pending NO MAN DIFF REQ WBC (4.8 - 10.8 /CUMM) Pending 8.9 RBC (4.70 - 6.10 /CUMM) Pending 3.64 L Hgb (14.0 - 18.0 G/DL) Pending 11.5 L Hct (42 - 52 %) Pending 33.7 L MCV (80.0 - 94.0 FL) Pending 92.7 MCH (27.0 - 31.0 PG) Pending 31.5 H RDW (11.5 - 14.5 %) Pending 13.0 Plt Count (130 - 400 /CUMM) Pending 195 MPV (7.4 - 10.4 FL) Pending 7.2 L Gran % (42.2 - 75.2 %) 77.6 H Lymphocytes % (20.5 - 51.1 %) 10.3 L Monocytes % (1.7 - 9.3 %) 10.0 H Eosinophils % (0 - 5 %) 1.8 Basophils % (0.0 - 2.0 %) 0.3 Absolute Granulocytes (1.4 - 6.5 /CUMM) 6.9 H Absolute Lymphocytes (1.2 - 3.4 /CUMM) 0.9 L Absolute Monocytes (0.10 - 0.60 /CUMM) 0.9 H Absolute Eosinophils (0.0 - 0.7 /CUMM) 0.2 Absolute Basophils (0.0 - 0.2 /CUMM) 0 PUBS MCHC (33.0 - 37.0 G/DL) Pending 34.0 Assessment/Plan Assessment/Plan POD #3 s/p right TKR; AVSS. Post op urinary retention. Plan: Renew aj catheter. D/C to STR today. needs to have BM first- dulcolax ordered. May need enema. OOB with PT. F/U morning labwork. Core Measures/Miscellaneous Venous Thromboembolism VTE Risk Factors: Age > 40, Surgery VTE Contraindications: No Contraindications VTE Prophylaxis Ordered Inpt: Mech & Pharm VTE Diagnosis: No Beta Alex Is Beta Alex a Home Med? No Antibiotics Is Patient on Antibiotics? Yes If Yes: prophylaxis
[2016-10-13 14:21] VITALS: BP 115/76
[2016-10-13 22:25] VITALS: BP 118/64
--- NOTE | 2016-10-13 23:10 | NUR ---
urine output 150 for this shift surgical pa made aware no new orders
[2016-10-14 07:24] VITALS: BP 130/70
[2016-10-14 08:20] LABS: PT 32.5 SEC (9.4-12.5)
--- NOTE | 2016-10-14 10:17 | PN- Orthopedic ---
See Addendum Subjective Subjective: No acute overnight events reported. Pain managed with po meds, had small bms last night. Lopez catheter remains in place, no complaints. Denies chest pain, shortness of breath and difficulty breathing. Denies nausea and vomitting. Objective Vital Signs and I&Os Vital Signs Date Time Temp Pulse Resp B/P Pulse O2 O2 Flow FiO2 Ox Delivery Rate 10/14 0948 83 130/70 10/14 0724 98.8 83 20 130/70 93 Room Air 10/14 0000 92 Room Air 10/13 2225 98.8 91 20 118/64 92 Room Air 10/13 1421 98.7 95 20 115/76 94 Room Air Intake & Output 10/14 1600 10/14 0800 10/14 0000 10/13 1600 10/13 0800 10/13 0000 Intake Total 200 400 550 50 760 Output Total 450 765 806 3161 650 Balance -250 250 350 -1350 110 Intake, IV 0 0 10 Intake, Oral 200 400 550 50 750 Number 1 2 0 Bowel Movements Output, Urine 450 364 282 5757 650 Physical Exam: General: Alert and oriented x3, no acute distress Cardiac: RRR, s1s2 Pulm: CTA bilaterally Abodmen: Non-tender, non-distended Extremiteis: Moves all extremities, distal sensation intact. DP pulses palpable. Bilateral calves soft and non-tender Surgical site: Knee, dressing dry and intact, skin edges well approximated, no surrounding erythema, no drainage Assessment/Plan Assessment/Plan This is a 75 year old male, POD 4, s/p right tkr -D/C to str today -WBAT -Lopez catheter to be removed tomorrow for voiding trial, f/u with dr. schuler as out patient -Hold coumadin today for INR 3.13 D/W Dr. Sims Core Measures/Miscellaneous Venous Thromboembolism VTE Risk Factors: Age > 40, Surgery VTE Contraindications: No Contraindications VTE Prophylaxis Ordered Inpt: Mech & Pharm VTE Diagnosis: No Beta Alex Is Beta Alex a Home Med? No Antibiotics Is Patient on Antibiotics? Yes If Yes: prophylaxis
[2016-10-14 11:33] VITALS: BP 130/70
== END 2016-10-14 13:31 | DRG 470 ==
LOC: ENRESERVDT → ENRESERVTM → 2NA 01:56 → ENPENDDIS 01:56 → SDA 01:56 → 2NA 12:51
PROVIDERS: Nurse Practitioner; Physician Assistant; Physician Assistant Surgical; ADMIT Orthopaedic Surgery Foot and Ankle Surgery
PROC: 0SRC0J9 Replacement of Right Knee Joint with Synthetic Substitute, Cemented, Open Approach (ICD-10-PCS; principal; 2016-10-13)
DX: M17.11 Unilateral primary osteoarthritis, right knee (principal); E11.9 Type 2 diabetes mellitus without complications; M48.00 Spinal stenosis, site unspecified; E78.00 Pure hypercholesterolemia, unspecified; E78.5 Hyperlipidemia, unspecified; Z79.84 Long term (current) use of oral hypoglycemic drugs
CPT/HCPCS: 2NASP; 36415; 73560-RT; 74020; 82436; 87086; 88305; 97110-GO; 97116-GO; 97161-GP; 97530-GO; C1713; J0131; J2405; J2795; J3370; J7060

== ENCOUNTER → 2018-03-03 | Day surgery (SDC) | payer OTHER ==
[~2018-03-03] VITALS: Ht 180.3 cm; Wt 86.2 kg
[~2018-03-03] MED LIST changes: +ACETAMINOPHEN1 EACH PO; +ASPIRIN EC81 M1 PO; +BICALUTAMIDE50 M1 PO; +COUMADIN2.5 M1 PO; +DILAUDID2 M1 PO; +FLOMAX0.4 M1 PO
--- NOTE | 2018-03-03 09:06 | Operative Report ---
Operative/Inv Procedure Report Surgery Date: 03/03/18 Name of Procedure: Cystoscopy, transurethral resection of bladder masses Pre-Operative Diagnosis: Metastatic prostate cancer, rule out concurrent bladder cancer Post-Operative Diagnosis: Same Estimated Blood Loss: less than 50ml Surgeon/Anodiser: Bernardo LINCOLN,Kurt Edge Anesthesia: laryngeal mask airway Drains: 22 Slovenian three-way Lopez catheter Specimens: Trigone mass and posterior bladder wall mass with specimen sent separately Microbiology: Urine culture Complications: None Condition: Stable Operative Indication: This patient was noted to have an elevated creatinine. Renal and pelvic ultrasound showed bilateral hydronephrosis and a large bladder mass. On exam in the office he had a large, indurated prostate and a PSA of over 300. Therefore he underwent prostate biopsy. This revealed high-grade prostate cancer. Bone scan was positive for diffuse metastatic disease. CAT scan showed a mass at the dome of the bladder as well as irregular thickening at the trigone. An office cystoscopy showed findings consistent with prostate cancer invading the trigone. The other mass and the bladder was on the posterior wall and was felt to be too far away from the prostate to be due to direct invasion. Therefore was felt that this should be resected and biopsied to rule out a concurrent bladder cancer. Operative/Procedure Note Note: Patient was taken to the cystoscopy room identified. Placed in supine position on the operating table. A timeout was executed appropriately with the patient awake. Gen. anesthesia was induced via LMA. He was then placed in dorsolithotomy position. Bimanual rectal exam did reveal an enlarged, irregular prostate. He was prepped and draped in usual fashion for cystoscopy. A surgical pause was executed appropriately. A 22 Slovenian cystoscope sheath was placed into the bladder under direct vision using the 30 lens. Anterior urethra was normal. The prostatic urethra showed partial bladder outlet obstruction and was 3 cm in length. Upon entering the bladder cystoscopy was performed. There was a mass on the trigone consistent with direct extension of prostate cancer into the bladder trigone. Neither ureteral orifice was visualized. On the posterior wall of the bladder there were 2 masses noted. They did not have the typical appearance of bladder tumor. At this point the bladder was left full and the cystoscope removed. A 22 Slovenian resectoscope sheath was placed into the bladder under direct vision. The mass on the trigone was first resected. The Gencia evacuator was used to remove all chips from the bladder. This was sent as one specimen. Next using the resectoscope the mass in the posterior wall was resected. The Gencia evacuator was used to remove these tissue chips in the bladder and they were sent as a separate specimen. The base of each resection area was cauterized. No significant bleeding was noted this time. Of note neither ureteral orifice was seen at any time. A 22 Slovenian three-way Lopez catheter was inserted and continuous bladder irrigation begun with clear drainage. The patient tolerated the procedure well and as completion was taken recovery room in stable condition. Findings: Mass on bladder trigone consistent with direct extension of prostate cancer. Mass on posterior bladder wall of unclear origin but also likely related to prostate cancer Discharge Disposition: PACU
== END ==
LOC: STS 03:58
DX: C79.11 Secondary malignant neoplasm of bladder (principal); C61 Malignant neoplasm of prostate; N18.3 Chronic kidney disease, stage 3 (moderate); M19.90 Unspecified osteoarthritis, unspecified site; Z85.038 Personal history of other malignant neoplasm of large intestine; Z96.651 Presence of right artificial knee joint; Z87.891 Personal history of nicotine dependence; N13.30 Unspecified hydronephrosis
CPT/HCPCS: 87086; J0690; J2250